=== PATIENT | male | born 1960 | race African-American/Black ===

== ENCOUNTER 2017-08-16 17:18 | Emergency (ER) | payer MEDICARE, OTHER ==
[~2017-08-16] VITALS: Ht 180.3 cm; Wt 86.2 kg
[2017-08-16] MEDS ORDERED: PREZISTA600 MG ORAL (17:30)
[2017-08-16] MEDS ORDERED: NORVIR100 MG ORAL (17:30)
[2017-08-16] MEDS ORDERED: BIKTARVY 50-201 EACH PO (17:30)
[2017-08-16] MEDS ORDERED: ROBAXIN500 MG PO (18:21)
[2017-08-16] MEDS ORDERED: LIDOCAINE700 M1 TP (18:21)
[2017-08-16] MEDS ORDERED: IBUPROFEN600 MG ORAL (18:21)
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
[2017-08-16 18:43] VITALS: BP 120/76
[2017-08-16 18:44] VITALS: BP 120/76
== END 2017-08-16 18:45 | disposition home or self-care (01) ==
LOC: EMR 18:42
DX: M54.2 Cervicalgia (principal); M54.9 Dorsalgia, unspecified; V43.52XA Car driver injured in collision with other type car in traffic accident, initial encounter; Y92.410 Unspecified street and highway as the place of occurrence of the external cause; Z91.013 Allergy to seafood; Z88.0 Allergy status to penicillin
CPT/HCPCS: 99284